=== PATIENT | male | born 1960 | race African-American/Black ===

== ENCOUNTER 2018-02-22 14:23 | Emergency (ER) | payer OTHER ==
[2018-02-22 14:37] VITALS: BMI 34.2
--- NOTE | 2018-02-22 15:02 | PDOC ---
History of Present Illness <Kathryn Valentin - Last Filed: 02/22/18 19:14> - General History Source: Patient Exam Limitations: No Limitations - History of Present Illness Initial Comments: 57 yo M w a hx of recent L3-L5 laminectomy, diabetes, HTN, HCL, childhood asthma , and distant cervical laminectomy presents to the [facility] with bilateral leg pain and right hip pain. He states he had his lumbar laminectomy in December by Dr. Jade Arias. he was originally healing well but then yesterday he experienced an episode of bilateral leg numbness, weakness, and the inability to ambulate. He states it has never hurt this bad. He needed to pull himself on the floor with his hands because his legs were in so much pain and so weak. He did not lose control of his bowel or bladder. He called his orthopedist today and told him about the episode. Dr. Arias said to come to the nearest ER and obtain a cat scan to make sure he doesn't have a blood clot in his spine. Patient denies any chest pain, SOB, difficulty breathing, dysuria, frequency, urgency, diarrhea, constipation, headache, blurry vision, recent fevers, chills , or infections. PCP: Neha Gilbert Orthopedic surgeon: jade arias PSH: Cervical and lumbar laminectomies Allergies: Amoxicillin, Clavulanic acid Social Hx: Smokes 3 cigarettes a day. Denies drinking alcohol or other substance usage. <Eric Kinney - Last Filed: 02/23/18 07:33> - General Chief Complaint: Pain Stated Complaint: RIGHT HIP AND LEFT LEG PAIN Time Seen by Provider: 02/22/18 15:01 Past History <Kathryn Valentin - Last Filed: 02/22/18 19:14> - Past Medical History Asthma: Yes COPD: No HTN: Yes - Suicide/Smoking/Psychosocial Hx Smoking History: Former smoker Have you smoked in the past 12 months: No If you are a former smoker, when did you quit?: 4 YEARS AGO Information on smoking cessation initiated: No Hx Alcohol Use: No Drug/Substance Use Hx: No <Eric Kinney - Last Filed: 02/23/18 07:33> - Past Medical History Allergies/Adverse Reactions: Allergies Allergy/AdvReac Type Severity Reaction Status Date / Time amoxicillin [From Augmentin] AdvReac Severe Difficulty Verified 02/22/18 14:27 Breathing clavulanic acid AdvReac Severe Difficulty Verified 02/22/18 14:27 [From Augmentin] Breathing Home Medications: Ambulatory Orders Amitriptyline HCl 0 mg PO DAILY 02/22/18 Lidocaine 5% Patch [Lidoderm Patch -] 1 patch TP DAILY #30 patch 02/22/18 Lisinopril 0 mg PO DAILY 02/22/18 Oxycodone HCl [Oxycodone HCl ER] 20 mg PO PRN PRN 02/22/18 Oxycodone HCl/Acetaminophen [Percocet 10-325 mg Tablet] 1 each PO Q4HWA Review of Systems - Review of Systems Able to Perform ROS?: Yes Comments:: CONSTITUTIONAL: Present: Chills Absent: fever, no fatigue EYES: Absent: visual changes ENT: Absent: ear pain, no sore throat CARDIOVASCULAR: Absent: chest pain, no palpitations RESPIRATORY: Absent: cough, no SOB GI: Absent: abdominal pain, no nausea, no vomiting, no constipation, no diarrhea GENITOURINARY: Absent: dysuria, no frequency, no hematuria MUSKULOSKELETAL: Present: Back pain, arthralgia Absent: no myalgia SKIN: Absent: rash NEURO: Absent: headache <Eric Kinney - Last Filed: 02/23/18 07:33> *Physical Exam - Vital Signs Last Vital Signs Temp Pulse Resp BP Pulse Ox 97.8 F 60 18 118/61 96 02/22/18 17:59 02/22/18 17:59 02/22/18 17:59 02/22/18 17:59 02/22/18 17:59 <Kathryn Valentin - Last Filed: 02/22/18 19:14> - Vital Signs Last Vital Signs Temp Pulse Resp BP Pulse Ox 98.8 F 71 18 134/87 97 02/22/18 14:24 02/22/18 14:24 02/22/18 14:24 02/22/18 14:24 02/22/18 14:24 - Physical Exam Comments: GENERAL: Well-appearing, well-nourished. No apparent distress. HEENT: Normocephalic, atraumatic. PERRL, EOM intact. CARDIOVASCULAR: Normal S1, S2. Regular rate and rhythm. PULMONARY: Clear to auscultation bilaterally. ABDOMEN: Soft, non-distended, non-tender. EXTREMITIES: It is painful for the patient to move his legs. He has point tenderness in the Right flank. There is a 10 cm scar which is not erythematous, and appears to be healing well. No TTP in any verterbrae. The scar is not TTP. Normal ROM in upper extremities. No gross deformities. SKIN: Warm, dry. No rash NEUROLOGICAL: No focal neurological deficits. Rectal Exam: positive: normal exam, normal rectal tone. negative: decreased tone, hemorrhoids <Eric Kinney - Last Filed: 02/23/18 07:33> Moderate Sedation - Procedure Monitoring Vital Signs: Procedure Monitoring Vital Signs Temperature 97.8 F 02/22/18 17:59 Pulse Rate 60 02/22/18 17:59 Respiratory Rate 18 02/22/18 17:59 Blood Pressure 118/61 02/22/18 17:59 O2 Sat by Pulse Oximetry (%) 96 02/22/18 17:59 <Kathryn Valentin - Last Filed: 02/22/18 19:14> - Procedure Monitoring Vital Signs: Procedure Monitoring Vital Signs Temperature 98.8 F 02/22/18 14:24 Pulse Rate 71 02/22/18 14:24 Respiratory Rate 18 02/22/18 14:24 Blood Pressure 134/87 02/22/18 14:24 O2 Sat by Pulse Oximetry (%) 97 02/22/18 14:24 <Eric Kinney - Last Filed: 02/23/18 07:33> ED Treatment Course - LABORATORY CBC & Chemistry Diagram: 02/22/18 15:56 02/22/18 15:56 - ADDITIONAL ORDERS Additional order review: Laboratory Results 02/22/18 02/22/18 02/22/18 16:35 15:56 15:56 PT with INR 12.8 INR 1.15 PTT (Actin FS) 25.9 Sodium 133 L Potassium 4.2 Chloride 100 Carbon Dioxide 27 Anion Gap 6 L BUN 20 H Creatinine 1.2 Creat Clearance w eGFR > 60 Random Glucose 118 H Calcium 8.7 Total Bilirubin 0.4 AST 14 ALT 13 Alkaline Phosphatase 85 Total Protein 6.7 Albumin 3.7 Urine Color Yellow Urine Appearance Clear Urine pH 5.5 Ur Specific [place] 1.025 Urine Protein Trace Urine Glucose (UA) Negative Urine Ketones Negative Urine Blood Negative Urine Nitrite Negative Urine Bilirubin Negative Urine Urobilinogen 0.2 Ur Leukocyte Esterase Negative Acetaminophen < 2.0 L 02/22/18 15:56 RBC 4.20 MCV 88.5 MCHC 33.1 RDW 12.1 MPV 7.1 L Neutrophils % 66.0 Lymphocytes % 24.9 Monocytes % 6.8 Eosinophils % 1.9 Basophils % 0.4 - Medications Given in the ED: ED Medications Discontinued Medications Generic Name Dose Route Start Last Admin Trade Name Isidra PRN Reason Stop Dose Admin Hydromorphone HCl 1 mg 02/22/18 17:48 02/22/18 17:52 Dilaudid Injection - IVPUSH 02/22/18 17:49 1 mg ONCE ONE Administration Morphine Sulfate 8 mg 02/22/18 15:25 02/22/18 16:04 Morphine Injection - IVPUSH 02/22/18 15:26 8 mg ONCE ONE Administration Sodium Chloride 1,000 ml 02/22/18 16:43 02/22/18 16:49 Normal Saline - IV 02/22/18 16:44 1,000 ml ONCE ONE Administration <Kathryn Valentin - Last Filed: 02/22/18 19:14> - LABORATORY CBC & Chemistry Diagram: 02/22/18 15:56 02/22/18 15:56 <Eric Kinney - Last Filed: 02/23/18 07:33> Medical Decision Making - Medical Decision Making 02/22/18 19:14 Ct shows no acute findings except for questionable loosening around the cage. Case discussed with Dr. Solitario at length, who feels that if patient's pain is improved, he may be seen and have MRI as an outpatient. Patient reports that his pain is greatly improved and he is now ambulatory in the ED. Will write for lidocaine patch and discharge home with follow up with Dr. Solitario. <Kathryn Valentin - Last Filed: 02/22/18 19:14> - Medical Decision Making 57 yo M w a hx of recent L3-L5 laminectomy, diabetes, HTN, HCL, childhood asthma , and distant cervical laminectomy presents to the [facility] with bilateral leg pain and right hip pain. DDx IBNLT: Spinal hematoma, spinal epidural abscess, vertebrae fx, disc herniation, renal colic. Plan: Labs, urine, spinal CT, analgesia, re-assess. - Spoke with Dr. Arias. Number: [phone] - will call him back after cat scans are read. - MRI would be more helpful. <Eric Kinney - Last Filed: 02/23/18 07:33> *DC/Admit/Observation/Transfer - Discharge Dispostion Decision to Admit order: No <Kathryn Valentin - Last Filed: 02/22/18 19:14> <Eric Kinney - Last Filed: 02/23/18 07:33> Diagnosis at time of Disposition: Low back pain Qualifiers: Chronicity: acute Back pain laterality: midline Sciatica presence: without sciatica Qualified Code(s): M54.5 - Low back pain - Discharge Dispostion Disposition: HOME Condition at time of disposition: Good - Prescriptions Prescriptions: Lidocaine 5% Patch [Lidoderm Patch -] 1 patch TP DAILY #30 patch - Referrals Referrals: Jade Arias MD [Primary Care Provider] - - Patient Instructions Printed Discharge Instructions: DI for Low Back Pain Additional Instructions: You came to the ED for severe back pain. There is no emergent finding on your cat scan, but Dr. Arias thinks you would benefit from an MRI. Please make sure that you call Dr. Arias tomorrow morning to set follow up and to make arrangements for your MRI. Return to the ED immediately for very severe pain, pain with fever, weakness or numbness in your legs, loss of control of your bowels or bladder, other new or worsening symptoms. - Post Discharge Activity Forms/Work/School Notes: Back to Work
--- NOTE | 2018-02-22 15:05 | PDOC ---
Attending Attestation - Resident Resident Name: Eric Kinney - HPI HPI: 02/22/18 16:21 Pt presents to the ED complaining of acutely worsening bilateral hip and leg pain. Patient has persistent leg and hip pain since laminectomy in December. Pain became acutely worse yesterday, and patient reports that he was completely unable to walk or move his legs for 45 minutes. This improved with laying motionless on the floor for 45 minutes, and patient is now ambulatory, although he reports subjective weakness in both legs. Patient has been taking 1600 mg of ibuprofen multiple times per day. - Physicial Exam PE: 02/22/18 17:05 Agree with resident exam. Patient is alert and oriented and is mildly uncomfortable. No point tenderness, stepoff of deformity of spine. Patient has well healed surgical incision in over his lumbar spine. Intact strength and sensation of both lower extremities. 02/24/18 18:23 - Medical Decision Making 02/24/18 18:24 PT presents to the ED complaining of acute exacerbation of his chronic lower back pain. Sent in by his orthopedic surgeon Dr. Silva for CT to evaluate positioning of hard fry and to look for blood clot. CT is negative except for very mild loosening of hard fry. Patient feels improved after pain medication and is now ambulatory. Case discussed with Dr. Silva, who agrees that patient can follow up as outpatient for continued imaging.
[2018-02-22] MEDS ORDERED: morphine CARPU-JECT 4 MG/1 ML DISP.SYRIN IVPUSH ONE (15:25)
[2018-02-22] MEDS ORDERED: morphine SULFATE 4 MG/ML VIAL ONE (15:59)
[2018-02-22 16:05] LABS: BASO % 0.4 % (0-2.0); EOS % 1.9 % (0-4.5); HEMATOCRIT 37.2 % (35.4-49); HEMOGLOBIN 12.3 GM/dl (11.7-16.9); LYMPH % 24.9 % (8-40); MCH 29.4 pg (25.7-33.7); MCHC 33.1 g/dl (32.0-35.9); MEAN CELL VOLUME 88.5 fl (80-96); MEAN PLT VOLUME 7.1 fl (7.5-11.1); MONO % 6.8 % (3.8-10.2); PLATELET COUNT 469 K/MM3 (134-434); RDW 12.1 % (11.9-15.9); WHITE BLOOD COUNT 10.3 K/mm3 (4.0-10.8)
[2018-02-22 16:25] LABS: ACTIVATED PTT 25.9 SECONDS (25.2-36.5)
[2018-02-22 16:26] LABS: ALBUMIN 3.7 g/dl (3.5-5.0); ALK PHOS 85 U/L (32-92); ANION GAP 6 MMOL/L (8-16); BILIRUBIN,TOTAL 0.4 mg/dl (0.2-1.0); BLOOD UREA NITROGEN 20 mg/dl (7-18); CALCIUM 8.7 mg/dl (8.4-10.2); CHLORIDE 100 mmol/L (98-107); CO2 27 mmol/L (22-28); CREATININE 1.2 mg/dl (0.6-1.3); GLUCOSE,RANDOM 118 mg/dl (74-106); POTASSIUM 4.2 mmol/L (3.5-5.1); SGOT/AST 14 U/L (10-42); SGPT/ALT 13 U/L (10-40); SODIUM 133 mmol/L (136-145); TOT PROT 6.7 g/dl (6.4-8.3)
[2018-02-22 16:29] LABS: INR 1.15 (0.82-1.09); PROTHROMBIN TIME (PATIENT) 12.8 SEC (10.2-13.0)
[2018-02-22] MEDS ORDERED: SODIUM CHLORIDE 0.9% 500 ML INFUS.BAG IV ONE (16:43)
[2018-02-22 16:54] LABS: PH,URINE 5.5 (4.5-8); URINE APPEARANCE Clear; URINE BILIRUBIN Negative (NEGATIVE); URINE COLOR Yellow; URINE GLUCOSE (UA) Negative (NEGATIVE); URINE KETONE Negative (NEGATIVE); URINE LEUK ESTERASE Negative (NEGATIVE); URINE NITRITE Negative (NEGATIVE); URINE PROTEIN Trace (NEGATIVE); URINE UROBILINOGEN 0.2 (0.2-1.0)
[2018-02-22] MEDS ORDERED: HYDROmorphone HCL CARPU-JECT 1 MG/1 ML DISP.SYRIN IVPUSH ONE (17:48)
[2018-02-22] MEDS ORDERED: HYDROmorphone HCL CARPU-JECT 1 MG/1 ML DISP.SYRIN ONE (17:51)
[2018-02-22 18:00] VITALS: BP 118/61; PULSE 60; TEMP 97.8
== END 2018-02-22 19:27 | disposition home or self-care (01) ==
LOC: FER 14:23
PROC: 3E033NZ Introduction of Analgesics, Hypnotics, Sedatives into Peripheral Vein, Percutaneous Approach (ICD-10-PCS; principal; 2018-02-22)
PROC: 3E0337Z Introduction of Electrolytic and Water Balance Substance into Peripheral Vein, Percutaneous Approach (ICD-10-PCS; 2018-02-22)
DX: M54.5 Low back pain (principal); Z87.891 Personal history of nicotine dependence; I10 Essential (primary) hypertension; J45.909 Unspecified asthma, uncomplicated; E11.9 Type 2 diabetes mellitus without complications
CPT/HCPCS: 36415; 72129-TC; 72132-TC; 80053; 80307; 81003; 85025; 85610; 85730; 99283-25

== ENCOUNTER 2018-02-27 08:39 | Day surgery (SDC) | payer OTHER | END 2018-02-27 10:30 | disposition home or self-care (01) | LOC: JRADIR 08:39 ==

== ENCOUNTER 2018-03-02 08:46 | Day surgery (SDC) | payer OTHER ==
[2018-03-01 17:56] VITALS: BMI 34.5
[2018-03-02 14:20] LABS: BASO % 0.4 % (0-2.0); EOS % 1.7 % (0-4.5); HEMATOCRIT 32.7 % (35.4-49); HEMOGLOBIN 11.6 GM/dL (11.7-16.9); LYMPH % 25.8 % (8-40); MCH 30.6 pg (25.7-33.7); MCHC 35.4 g/dl (32.0-35.9); MEAN CELL VOLUME 86.5 fl (80-96); MEAN PLT VOLUME 6.9 fl (7.5-11.1); MONO % 9.7 % (3.8-10.2); NEUT % 62.4 % (42.8-82.8); PLATELET COUNT 379 K/MM3 (134-434); RBC 3.78 M/mm3 (4.00-5.60); RDW 12.7 % (11.9-15.9); WHITE BLOOD COUNT 8.4 K/mm3 (4.0-10.0)
[2018-03-02 15:04] LABS: ERYTHROCYTE SEDIMENTATION RATE 44 mm/hr (0-20)
[2018-03-02 18:24] VITALS: BP 123/72; PULSE 76; TEMP 97.8
--- NOTE | 2018-03-05 17:02 | PATH ---
Surgical Pathology Report Patient Name: LEÓN SMITH Med. Rec. #: [id number] /Age/Gender: 1960 (Age: 57) / M Account: [id number] Location: RADIOLOGY INTER Taken: 03/02/2018 Received: 03/02/2018 Reported: 03/05/2018 Physicians: Gaetano Silva M.D. Specimen(s) Received BX LUMBAR BONE Clinical History 57-year-old male with history of degenerative disease status post laminectomy and surgical fixation with increased T2 signal at T4-T5 and lytic-like process in ventral body suspicious for discitis osteomyelitis Final Diagnosis LUMBAR BONE, T5, VERTEBRAL BODY, BIOPSY: BONE WITH REACTIVE CHANGES AND MARKED CRUSH ARTIFACT. NO DEFINITIVE ACUTE OSTEOMYELITIS IDENTIFIED. Comment: Multiple levels have been examined. Electronically Signed Shelby Ortiz M.D. Gross Description Received in formalin labeled "lumbar bone," are 4 ascencio-yellow, cylindrical bone fragments ranging from 0.2-0.5 cm in length and averaging 0.1 cm in diameter. The specimens are submitted in toto in one cassette, following decalcification. /03/02/201803/02/2018
== END 2018-03-02 14:30 | disposition home or self-care (01) ==
LOC: JRADIR 08:46
PROVIDERS: ATTEND Orthopaedic Surgery Orthopaedic Surgery of the Spine
PROC: 0PB43ZX Excision of Thoracic Vertebra, Percutaneous Approach, Diagnostic (ICD-10-PCS; principal; 2018-03-02)
PROC: 0R9 Upper Joints, Drainage (ICD-10-PCS; 2018-03-02)
DX: M47.894 Other spondylosis, thoracic region (principal); M96.1 Postlaminectomy syndrome, not elsewhere classified
CPT/HCPCS: 10030; 20225; 36415; 85025; 85651; 86140; 87070; 87075; 87205; 87899; 88305-TC

== ENCOUNTER 2018-03-16 13:31 | Inpatient (IN) | payer OTHER ==
[2018-03-16] MEDS ORDERED: CEFTRIAXONE 2 GM-D5W BAG 2 GM/50 ML BAG IVPB SCH (14:45)
[2018-03-16 14:46] VITALS: BMI 34.2
[2018-03-16] MEDS ORDERED: ALBUTEROL SO4 8 GM HFA INHALER IH PRN (15:14)
[2018-03-16] MEDS ORDERED: ACETAMINOPHEN 500 MG TABLET (FP) PO PRN (15:14)
[2018-03-16 15:28] LABS: BASO % 0.2 % (0-2.0); EOS % 1.9 % (0-4.5); HEMATOCRIT 32.2 % (35.4-49); HEMOGLOBIN 10.8 GM/dl (11.7-16.9); MCH 29.4 pg (25.7-33.7); MCHC 33.6 g/dl (32.0-35.9); MEAN CELL VOLUME 87.5 fl (80-96); MEAN PLT VOLUME 7.1 fl (7.5-11.1); MONO % 8.3 % (3.8-10.2); NEUT % 73.6 % (42.8-82.8); PLATELET COUNT 456 K/MM3 (134-434); RBC 3.68 M/mm3 (4.00-5.60); RDW 12.3 % (11.9-15.9)
[2018-03-16 15:36] LABS: ANION GAP 9 MMOL/L (8-16); BLOOD UREA NITROGEN 26 mg/dl (7-18); CALCIUM 8.9 mg/dl (8.5-10); CHLORIDE 99 mmol/L (98-107); CO2 28 mmol/L (21-32); CREATININE 1.3 mg/dl (0.55-1.3); GLUCOSE,RANDOM 136 mg/dl (74-106); POTASSIUM 5.5 mmol/L (3.5-5.1); SODIUM 136 mmol/L (136-145)
--- NOTE | 2018-03-16 15:40 | HP ---
Admitting History and Physical - Admission Chief Complaint: Low back pain s/p laminectomy and fusion of L4-L5 History of Present Illness: This is a 58 year-old male s/p lumbar laminectomy, interbody fusion and posterior spinal fusion at L4-5 performed 01/02/18. Initial post op course was complicated by wound drainage after sutures removed. Treated with one week of Bactrim without issue. He began to develop increasing low back pain first around 01/26/18. He was neurologically intact and XR showed no issues. Back pain gradually worsened and he had severe episode on 02/21/18 (10/10 in severity) and was seen in ER 02/22/18. CT showed bone loss around cage, WBC 10.3, afebrile. Monday02/23/18 had outpatient MRI that was read as possible disc space infection and seroma - ESR/CRP elevated at 52 and 3.2, respectively. The patient underwent CT-guided biopsies of the seroma as well as the bone and disc space on 03/02/18 where gram stain, fungal cultures and pathology sample were negative for infection. WBC and ESR had dropped to 8.4 and 44 respectively, although CRP increased to 8.3. As the patient was afebrile and pain was controlled at this point, he and Dr. Silva decided to follow-up with patient in the clinical setting the following week. However, laboratory work done on 03/14/18 showed the patient' s white count to be 11.4, ESR of 92 and CRP of 9.9. Given his persistent pain, the findings on the imaging studies, as well as the trending laboratory values, the patient has been admitted for treatment for postoperative discitis. Currently with LBP 09/29. History Source: Patient - Past Medical History Cardiovascular: Yes: HTN Endocrine: Yes: Diabetes Mellitus - Past Surgical History Past Surgical History: Yes: Laminectomy (and fusion of L4-L5 on 01/02/18) - Smoking History Smoking history: Current some day smoker Have you smoked in the past 12 months: Yes Aproximately how many cigarettes per day: 1 If you are a former smoker, when did you quit?: 4 YEARS AGO - Alcohol/Substance Use Hx Alcohol Use: No Home Medications - Allergies Allergies/Adverse Reactions: Allergies Allergy/AdvReac Type Severity Reaction Status Date / Time amoxicillin [From Augmentin] AdvReac Severe Difficulty Verified 03/02/18 09:28 Breathing clavulanic acid AdvReac Severe Difficulty Verified 03/02/18 09:28 [From Augmentin] Breathing - Home Medications Home Medications: Ambulatory Orders Amitriptyline HCl 50 mg PO HS 02/22/18 Lisinopril 10 mg PO DAILY 02/22/18 Albuterol Sulfate Inhaler - [Ventolin Hfa Inhaler -] 2 inh PO Q8H PRN 02/27/18 Aspirin [ASA -] 81 mg PO DAILY 02/27/18 Diclofenac Sodium 1 tablet PO BID 02/27/18 Fluticasone/Salmeterol [Advair 250-50 Diskus] 1 each IH BID 02/27/18 Ibuprofen 800 mg PO TID PRN 02/27/18 Naproxen [Naprosyn -] 500 mg PO BID 02/27/18 Omeprazole 40 mg PO DAILY 02/27/18 Oxycodone HCl 20 mg PO PRN PRN 02/27/18 metFORMIN XR [Glucophage *Xr* -] 750 mg PO DAILY 02/27/18 Acetaminophen [Tylenol .Extra-Strength -] 1,000 mg PO PRN PRN 03/02/18 Oxycodone HCl/Acetaminophen [Percocet 10-325 mg Tablet] 1 tab PO PRN PRN Review of Systems - Review of Systems Musculoskeletal: reports: Back Pain Physical Examination Vital Signs: Vital Signs Temperature 98.7 F 03/16/18 14:15 Pulse Rate 83 03/16/18 14:15 Respiratory Rate 18 03/16/18 14:15 Blood Pressure 130/64 03/16/18 14:15 O2 Sat by Pulse Oximetry (%) Constitutional: Yes: Well Nourished Cardiovascular: Yes: Regular Rate and Rhythm Respiratory: Yes: Regular, CTA Bilaterally Gastrointestinal: Yes: Normal Bowel Sounds, Soft Musculoskeletal: Yes: Back Pain Wound/Incision: Yes: Clean/Dry, Well Approximated Neurological: Yes: Alert, Oriented ...Motor Strength: WNL Labs: CBC, BMP 03/16/18 15:00 Assessment/Plan 58 year-old male s/p lumbar laminectomy, interbody fusion and posterior spinal fusion at L4-5 performed 01/02/18. Worsening severe back pain since 02/21/18 (10 in severity). He was seen in ER on 02/22/[address] showed bone loss around cage. Outpatient MRI on 02/23/18 read as possible disc space infection and seroma - ESR/CRP elevated at 52 and 3.2, respectively. CT-guided biopsies on 03/02/18 of the seroma and the bone and disc space sent for gram stain, fungal cultures and pathology sample were negative for infection. However, laboratory work on showed WBC of 11.4, ESR of 92 and CRP of 9.9. Given his persistent pain, the findings on the imaging studies, as well as the trending laboratory values, the patient has been admitted for treatment for postoperative discitis. I discussed the case with Dr. Fuchs of infectious diseases.
[2018-03-16] MEDS ORDERED: CEFTRIAXONE 2 GM in DEXTROSE 5%-WATER 100 ML IVPB ONE (18:00)
[2018-03-16] MEDS ORDERED: DEXTROSE 5%-WATER 100 ML IVPB ONE (18:03)
[2018-03-16] MEDS: AMITRIPTYLINE HCL 25 MG TABLET (FP) PO SCH (21:23)
[2018-03-17 08:44] LABS: ALBUMIN 3.1 g/dl (3.4-5.0); ALK PHOS 64 U/L (45-117); ANION GAP 9 MMOL/L (8-16); BILIRUBIN,TOTAL 0.3 mg/dl (0.2-1); BLOOD UREA NITROGEN 19 mg/dl (7-18); CALCIUM 8.9 mg/dl (8.5-10); CHLORIDE 99 mmol/L (98-107); CO2 29 mmol/L (21-32); CREATININE 1.1 mg/dl (0.55-1.3); GLUCOSE,RANDOM 118 mg/dl (74-106); POTASSIUM 5.4 mmol/L (3.5-5.1); SGOT/AST 14 U/L (15-37); SGPT/ALT 11 U/L (13-61); SODIUM 137 mmol/L (136-145)
[2018-03-17 08:52] LABS: HEMATOCRIT 30.6 % (35.4-49); HEMOGLOBIN 10.1 GM/dl (11.7-16.9); MCH 28.8 pg (25.7-33.7); MEAN CELL VOLUME 87.4 fl (80-96); MEAN PLT VOLUME 7.2 fl (7.5-11.1); PLATELET COUNT 422 K/MM3 (134-434); RBC 3.51 M/mm3 (4.00-5.60); WHITE BLOOD COUNT 8.1 K/mm3 (4.0-10.8)
[2018-03-17] MEDS ORDERED: DEXTROSE 5%-WATER 100 ML IVPB ONE (08:59)
[2018-03-17] MEDS: CEFTRIAXONE 2 GM in DEXTROSE 5%-WATER 100 ML IVPB SCH (09:05)
--- NOTE | 2018-03-17 09:39 | CONSULT ---
Consultation: REQUESTING PROVIDER: Dr. Silva CONSULT REQUEST: We have been asked to medically evaluate and follow this patient during his hospitalization for infectious spondylodiscitis. HISTORY OF PRESENT ILLNESS: This is a 58 year-old male with a PMH significant for HTN, HLD, and Type II NIDDM, and s/p lumbar laminectomy and fusion. The following relevant history is taken from the EMR: Patient is s/p lumbar laminectomy, interbody fusion and posterior spinal fusion at L4-5 performed 01/02/18. Initial post op course was complicated by wound drainage after suture removal. Treated with one week of Bactrim. He began to develop increasing low back pain around 01/26/18. He was neurologically intact and XR showed no issues. Back pain gradually worsened and he had severe episode on 02/21/18 (11/29 in severity) and was seen in ER 02/22/18. CT showed bone loss around cage, WBC 10.3, afebrile. Monday02/23/18 had outpatient MRI that was read as possible disc space infection and seroma - ESR/CRP elevated at 52 and 3.2, respectively. The patient underwent CT-guided biopsies of the seroma as well as the bone and disc space on 03/02/18 where gram stain, fungal cultures and pathology sample were negative for infection. WBC and ESR had dropped to 8.4 and 44 respectively, although CRP increased to 8.3. As the patient was afebrile and pain was controlled at this point, he and Dr. Silva decided to follow-up with patient in the clinical setting the following week. However, laboratory work done on 03/14/18 showed the patient's white count to be 11.4, ESR of 92 and CRP of 9.9. Given his persistent pain, the findings on the imaging studies, as well as the trending laboratory values, the patient has been admitted for treatment for postoperative discitis. Currently with LBP 09/29. REVIEW OF SYSTEMS: CONSTITUTIONAL: Absent: fever, chills, diaphoresis, generalized weakness, malaise, loss of appetite, weight change HEENT: Absent: rhinorrhea, nasal congestion, throat pain, throat swelling, difficulty swallowing, mouth swelling, ear pain, eye pain, visual changes CARDIOVASCULAR: Absent: chest pain, syncope, palpitations, irregular heart rate, lightheadedness , peripheral edema RESPIRATORY: Absent: cough, shortness of breath, dyspnea with exertion, orthopnea, wheezing, stridor, hemoptysis GASTROINTESTINAL: Absent: abdominal pain, abdominal distension, nausea, vomiting, diarrhea, constipation, melena, hematochezia GENITOURINARY: Absent: dysuria, frequency, urgency, hesitancy, hematuria, flank pain, genital pain MUSCULOSKELETAL: +low back pain that extends across right hip and down right leg Absent: myalgia, arthralgia, joint swelling, back pain, neck pain SKIN: Absent: rash, itching, pallor HEMATOLOGIC/IMMUNOLOGIC: Absent: easy bleeding, easy bruising, lymphadenopathy, frequent infections ENDOCRINE: Absent: unexplained weight gain, unexplained weight loss, heat intolerance, cold intolerance NEUROLOGIC: Absent: headache, focal weakness or paresthesias, dizziness, unsteady gait, seizure, mental status changes, bladder or bowel incontinence PSYCHIATRIC: Absent: anxiety, depression, suicidal or homicidal ideation, hallucinations. PHYSICAL EXAMINATION Vital Signs - 24 hr 03/16/18 03/16/18 03/16/18 14:15 18:20 20:00 Temperature 98.7 F 99.6 F Pulse Rate 83 84 Respiratory 18 20 20 Rate Blood Pressure 130/64 146/62 O2 Sat by Pulse 98 98 Oximetry (%) 03/16/18 03/17/18 22:19 06:27 Temperature 99.1 F 98.0 F Pulse Rate 80 62 Respiratory 20 18 Rate Blood Pressure 136/72 119/64 O2 Sat by Pulse 97 97 Oximetry (%) GENERAL: Awake, alert, and fully oriented, in no acute distress. LUNGS: Breath sounds equal, clear to auscultation bilaterally. No wheezes, and no crackles. No accessory muscle use. HEART: Regular rate and rhythm, normal S1 and S2 ABDOMEN: Soft, nontender, not distended, normoactive bowel sounds UPPER EXTREMITIES: 2+ pulses, warm, well-perfused. No cyanosis. No clubbing. Cap refill <2 seconds. No peripheral edema. LOWER EXTREMITIES: 2+ pulses, warm, well-perfused. No calf tenderness. No peripheral edema. BACK: midline surgical scar well-healed NEUROLOGICAL: Cranial nerves II-XII intact. Normal speech. Laboratory Results - last 24 hr 03/16/18 03/16/18 03/16/18 15:00 15:00 15:00 WBC 9.0 RBC 3.68 L Hgb 10.8 L Hct 32.2 L MCV 87.5 MCH 29.4 MCHC 33.6 RDW 12.3 Plt Count 456 H MPV 7.1 L Absolute Neuts (auto) 6.7 Neutrophils % 73.6 Lymphocytes % 16.0 D Monocytes % 8.3 Eosinophils % 1.9 Basophils % 0.2 ESR 96 H Sodium 136 Potassium 5.5 H Chloride 99 Carbon Dioxide 28 Anion Gap 9 BUN 26 H Creatinine 1.3 Creat Clearance w eGFR 56.31 Random Glucose 136 H Calcium 8.9 Total Bilirubin AST ALT Alkaline Phosphatase C-Reactive Protein Total Protein Albumin 03/16/18 03/17/18 03/17/18 15:00 07:45 07:45 WBC 8.1 RBC 3.51 L Hgb 10.1 L Hct 30.6 L MCV 87.4 MCH 28.8 MCHC 33.0 RDW 12.0 Plt Count 422 MPV 7.2 L Absolute Neuts (auto) Neutrophils % Lymphocytes % Monocytes % Eosinophils % Basophils % ESR Sodium 137 Potassium 5.4 H Chloride 99 Carbon Dioxide 29 Anion Gap 9 BUN 19 H Creatinine 1.1 Creat Clearance w eGFR > 60 Random Glucose 118 H Calcium 8.9 Total Bilirubin 0.3 AST 14 L ALT 11 L Alkaline Phosphatase 64 D C-Reactive Protein 9.4 H Total Protein 6.0 L Albumin 3.1 L Active Medications Generic Name Dose Route Start Last Admin Trade Name Freq PRN Reason Stop Dose Admin Acetaminophen 1,000 mg 03/16/18 15:14 Tylenol - PO PRN PRN BACK PAIN Albuterol Sulfate 2 puff 03/16/18 15:14 Ventolin Hfa Inhaler - IH Q8H PRN WHEEZING Amitriptyline HCl 50 mg 03/16/18 22:00 03/16/18 21:23 Elavil - PO 50 mg HS GISSEL Administration Aspirin 81 mg 03/17/18 10:00 03/17/18 09:05 Asa - PO 81 mg DAILY GISSEL Administration Ceftriaxone Sodium 2 gm/ 100 mls @ 200 mls/hr 03/16/18 14:45 03/17/18 09:05 Dextrose IVPB 200 mls/hr DAILY GISSEL Administration Protocol Oxycodone/Acetaminophen 2 combo 03/16/18 15:13 03/17/18 08:01 Percocet 5/325 - PO 2 combo Q6H PRN Administration PAIN LEVEL 6-10 ASSESSMENT/PLAN: This is a 58 year-old male with a PMH significant for HTN, HLD, and Type II NIDDM, and s/p lumbar laminectomy and fusion. Infectious spondylodiscitis --03/16 MRI lumbar spine: increased marrow edema within L4-L5 vertebral bodies ; non-specific as MRI findings may lag clinical improvement; remainder of study is suggestive of infectious spondylodiscitis infectious spondylodiscitis --bone and aspirate cultures from 03/02/18 negative --blood cultures from 03/16 pending --afebrile, no leukocytosis --ID following: continue ceftriaxone (day #2) --will need PICC line for prolonged IV antibiotic therapy --pain management per surgery; presently on Percocet 2 pills q6h; gave IV motrin 800 x 1 dose today for severe pain; started on amitriptyline several days ago to replace gabapentin; monitor renal function closely Hypertension --BP stable --continue Lisinopril Hyperlipidemia --not on statin therapy Chronic "shortness of breath" --per patient never diagnosed with asthma or COPD, 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 Thank you for this consultative opportunity. Visit type - Emergency Visit Emergency Visit: Yes ED Registration Date: 03/16/18 Care time: The patient presented to the Emergency Department on the above date and was hospitalized for further evaluation of their emergent condition. - New Patient This patient is new to me today: Yes Date on this admission: 03/17/18 - Critical Care Critical Care patient: No
[2018-03-17] MEDS ORDERED: ACETAMINOPHEN 325 MG TABLET (FP) PO PRN (09:54)
[2018-03-17] MEDS ORDERED: ASPIRIN 81 MG CHEWABLE TABLETS PO SCH (10:00)
[2018-03-17] MEDS: LISINOPRIL 10 MG TABLET (FP) PO SCH (10:56)
[2018-03-17] MEDS: INSULIN (NOVOLOG) ASPART 100 UNITS/ML 10ML VIAL SQ SCH ×3 (10:59→21:02)
--- NOTE | 2018-03-17 11:07 | CON.ID ---
Consult Consult Specialty:: infectious diseases Referred by:: Ricardo Roberts Reason for Consultation:: r/o infection of the back - History of Present Illness Chief Complaint: back pain History of Present Illness: 58 year-old male s/p lumbar laminectomy, interbody fusion and posterior spinal fusion at L4-5 performed 01/02/18. Initial post op course was complicated by wound drainage after sutures removed. Treated with one week of Bactrim without issue. He began to develop increasing low back pain first around 01/26/18. He was neurologically intact and XR showed no issues. Back pain gradually worsened and he had severe episode on 02/21/18 (10/10 in severity) and was seen in ER . CT showed bone loss around cage, WBC 10.3, afebrile. Monday02/23/18 had outpatient MRI that was read as possible disc space infection and seroma - ESR/ CRP elevated at 52 and 3.2, respectively. The patient underwent CT-guided biopsies of the seroma as well as the bone and disc space on 03/02/18 where gram stain, fungal cultures and pathology sample were negative for infection. WBC and ESR had dropped to 8.4 and 44 respectively, although CRP increased to 8.3. As the patient was afebrile and pain was controlled at this point, he and Dr. Silva decided to follow-up with patient in the clinical setting the following week. However, laboratory work done on 03/14/18 showed the patient's white count to be 11.4, ESR of 92 and CRP of 9.9. Given his persistent pain, the findings on the imaging studies, as well as the trending laboratory values, the patient has been admitted for treatment for postoperative discitis. . - History Source History Provided By: Patient Limitations to Obtaining History: No Limitations - Past Medical History Cardio/Vascular: Yes: HTN Endocrine: Yes: Diabetes Mellitus - Past Surgical History Past Surgical History: Yes: Laminectomy (and fusion of L4-L5 on 01/02/18) - Alcohol/Substance Use Hx Alcohol Use: No - Smoking History Smoking history: Current some day smoker Have you smoked in the past 12 months: Yes Aproximately how many cigarettes per day: 1 If you are a former smoker, when did you quit?: 4 YEARS AGO Home Medications - Allergies Allergies/Adverse Reactions: Allergies Allergy/AdvReac Type Severity Reaction Status Date / Time amoxicillin [From Augmentin] AdvReac Severe Difficulty Verified 03/02/18 09:28 Breathing clavulanic acid AdvReac Severe Difficulty Verified 03/02/18 09:28 [From Augmentin] Breathing - Home Medications Home Medications: Ambulatory Orders Amitriptyline HCl 50 mg PO HS 02/22/18 Lisinopril 10 mg PO DAILY 02/22/18 Albuterol Sulfate Inhaler - [Ventolin Hfa Inhaler -] 2 inh PO Q8H PRN 02/27/18 Aspirin [ASA -] 81 mg PO DAILY 02/27/18 Diclofenac Sodium 1 tablet PO BID 02/27/18 Fluticasone/Salmeterol [Advair 250-50 Diskus] 1 each IH BID 02/27/18 Ibuprofen 800 mg PO TID PRN 02/27/18 Naproxen [Naprosyn -] 500 mg PO BID PRN 02/27/18 Omeprazole 40 mg PO DAILY 02/27/18 Oxycodone HCl 20 mg PO PRN PRN 02/27/18 metFORMIN XR [Glucophage *Xr* -] 750 mg PO DAILY 02/27/18 Acetaminophen [Tylenol .Extra-Strength -] 1,000 mg PO PRN PRN 03/02/18 Oxycodone HCl/Acetaminophen [Percocet 10-325 mg Tablet] 1 tab PO PRN PRN Review of Systems - Review of Systems Constitutional: reports: No Symptoms Eyes: reports: No Symptoms HENT: reports: No Symptoms Neck: reports: No Symptoms Cardiovascular: reports: No Symptoms Respiratory: reports: No Symptoms Gastrointestinal: reports: No Symptoms Genitourinary: reports: No Symptoms Musculoskeletal: reports: Back Pain Integumentary: reports: No Symptoms Neurological: reports: Numbness (in the legs) Endocrine: reports: No Symptoms Hematology/Lymphatic: reports: No Symptoms Psychiatric: reports: No Symptoms Physical Exam Vital Signs: Vital Signs Temperature 98.0 F 03/17/18 06:27 Pulse Rate 62 03/17/18 06:27 Respiratory Rate 18 03/17/18 06:27 Blood Pressure 119/64 03/17/18 06:27 O2 Sat by Pulse Oximetry (%) 97 03/17/18 06:27 Constitutional: Yes: Well Nourished, Calm, Mild Distress HENT: Yes: Atraumatic, Normocephalic Neck: Yes: Supple, Trachea Midline Cardiovascular: Yes: Regular Rate and Rhythm Respiratory: Yes: Regular, CTA Bilaterally Gastrointestinal: Yes: Normal Bowel Sounds, Soft Musculoskeletal: Yes: Back Pain Extremities: Yes: WNL Neurological: Yes: Alert, Oriented, Other (tenderness while movng the legs) Psychiatric: Yes: Alert, Oriented Labs: CBC, BMP 03/17/18 07:45 03/17/18 07:45 Assessment/Plan this patient with post op seroma development who underwent tapping and who developed and continued to ahve severe back pain now coming because the pain has increased a lot patient crp has increased i have a strong suspicion of discitis vs infection at the site and also if there is further fluid accumalation which could have got infected will send blood cx will send all other blood test repeat mri to see the status ordered crp esr close watch once the blood is collected to start ceftriaxone for now rest continue current mgmt
--- NOTE | 2018-03-17 11:22 | PN ---
Progress Note, Physician History of Present Illness: patient still with lot of pain post op seroma and has a cage mri result noted - Current Medication List Current Medications: Active Medications Acetaminophen (Tylenol -) 650 mg PO Q6H PRN PRN Reason: PAIN LEVEL 1-5 Albuterol Sulfate (Ventolin Hfa Inhaler -) 2 puff IH Q8H PRN PRN Reason: WHEEZING Amitriptyline HCl (Elavil -) 50 mg PO HS [facility] Last Admin: 03/16/18 21:23 Dose: 50 mg Aspirin (Asa -) 81 mg PO DAILY [facility] Last Admin: 03/17/18 09:05 Dose: 81 mg Ceftriaxone Sodium 2 gm/ (Dextrose) 100 mls @ 200 mls/hr IVPB DAILY [facility]; Protocol Last Admin: 03/17/18 09:05 Dose: 200 mls/hr Insulin Aspart (Novolog Vial) 0 units SQ ACHS [facility]; Protocol Last Admin: 03/17/18 10:59 Dose: Not Given Lisinopril (Prinivil) 10 mg PO DAILY [facility] Last Admin: 03/17/18 10:56 Dose: 10 mg Non-Formulary Medication (Fluticasone/Salmeterol [Advair 250-50 Diskus]) 1 each IH BID [facility] Last Admin: 03/17/18 10:56 Dose: 1 each Oxycodone/Acetaminophen (Percocet 5/325 -) 2 combo PO Q6H PRN PRN Reason: PAIN LEVEL 6-10 Last Admin: 03/17/18 08:01 Dose: 2 combo - Objective Vital Signs: Vital Signs Temperature 98.0 F 03/17/18 06:27 Pulse Rate 62 03/17/18 06:27 Respiratory Rate 18 03/17/18 06:27 Blood Pressure 119/64 03/17/18 06:27 O2 Sat by Pulse Oximetry (%) 97 03/17/18 06:27 Constitutional: Yes: Calm, Mild Distress Cardiovascular: Yes: Regular Rate and Rhythm Respiratory: Yes: Regular, CTA Bilaterally Gastrointestinal: Yes: Normal Bowel Sounds, Soft Musculoskeletal: Yes: Back Pain Extremities: Yes: WNL Neurological: Yes: Alert, Oriented Psychiatric: Yes: Alert, Oriented Labs: CBC, BMP 03/17/18 07:45 03/17/18 07:45 Assessment/Plan this patient with post op seroma development who underwent tapping and who developed and continued to ahve severe back pain now coming because the pain has increased a lot patient crp has increased i have a strong suspicion of discitis vs infection at the site and also if there is further fluid accumalation which could have got infected post op discitis back pain numbness int he leg plan await for blood cx to be back patient will need at least 6 weeks of abx rest as per the team once we have everything will decide further plan
[2018-03-17] MEDS ORDERED: IBUPROFEN 800 MG/8 ML IJ IVPB ONE (13:20)
[2018-03-17] MEDS: PANTOPRAZOLE 40 MG TABLET (FP) PO SCH (14:19)
--- NOTE | 2018-03-17 17:38 | PN ---
Progress Note (short form) - Note Progress Note: PT seen and examined and Dw DR Silva. MRI reviewed. Pt feeling better today than yesterday. Afebrile, wound without change. Likely dx at this point is discitis and being treated with IV abx. Per DR Silva no indication for surgical intervention at this time. Will cont abx and follow.
[2018-03-17] MEDS: AMITRIPTYLINE HCL 25 MG TABLET (FP) PO SCH (21:20)
[2018-03-18] MEDS: INSULIN (NOVOLOG) ASPART 100 UNITS/ML 10ML VIAL SQ SCH ×4 (06:19→21:28)
[2018-03-18] MEDS ORDERED: DEXTROSE 5%-WATER 100 ML IVPB ONE (09:14)
[2018-03-18] MEDS: PANTOPRAZOLE 40 MG TABLET (FP) PO SCH (09:18)
[2018-03-18] MEDS: LISINOPRIL 10 MG TABLET (FP) PO SCH (09:18)
[2018-03-18] MEDS: CEFTRIAXONE 2 GM in DEXTROSE 5%-WATER 100 ML IVPB SCH (09:22)
--- NOTE | 2018-03-18 09:42 | PN ---
Physical Exam: SUBJECTIVE: Patient seen and examined OBJECTIVE: Vital Signs Period Temp Pulse Resp BP Sys/Aguilar Pulse Ox Last 24 Hr 98.1 F-99.4 F 67-82 16-22 126-148/55-82 94-97 GENERAL: Awake, alert, and fully oriented, in no acute distress. LUNGS: Breath sounds equal, clear to auscultation bilaterally. No wheezes, and no crackles. No accessory muscle use. HEART: Regular rate and rhythm, normal S1 and S2 ABDOMEN: Soft, nontender, not distended, normoactive bowel sounds UPPER EXTREMITIES: 2+ pulses, warm, well-perfused. No cyanosis. No clubbing. Cap refill <2 seconds. No peripheral edema. LOWER EXTREMITIES: 2+ pulses, warm, well-perfused. No calf tenderness. No peripheral edema. BACK: midline surgical scar well-healed NEUROLOGICAL: Cranial nerves II-XII intact. Normal speech. Laboratory Results - last 24 hr 03/17/18 03/17/18 03/18/18 18:24 20:59 05:55 WBC RBC Hgb Hct MCV MCH MCHC RDW Plt Count MPV Absolute Neuts (auto) Neutrophils % Lymphocytes % Monocytes % Eosinophils % Basophils % Sodium Potassium Chloride Carbon Dioxide Anion Gap BUN Creatinine Creat Clearance w eGFR POC Glucometer 267 121 135 Random Glucose Calcium Magnesium Total Bilirubin AST ALT Alkaline Phosphatase Total Protein Albumin 03/18/18 03/18/18 03/18/18 06:00 06:00 11:32 WBC 8.5 RBC 3.78 L Hgb 11.1 L Hct 33.1 L MCV 87.8 MCH 29.3 MCHC 33.4 RDW 11.9 Plt Count 444 H MPV 7.5 Absolute Neuts (auto) 5.4 Neutrophils % 62.2 Lymphocytes % 27.2 D Monocytes % 7.3 Eosinophils % 2.9 Basophils % 0.4 Sodium 140 Potassium 5.6 H Chloride 101 Carbon Dioxide 30 Anion Gap 9 BUN 15 Creatinine 1.1 Creat Clearance w eGFR > 60 POC Glucometer 163 Random Glucose 116 H Calcium 9.0 Magnesium 2.0 Total Bilirubin 0.2 AST 15 ALT 11 L Alkaline Phosphatase 73 Total Protein 6.2 L Albumin 3.2 L Active Medications Generic Name Dose Route Start Last Admin Trade Name Freq PRN Reason Stop Dose Admin Acetaminophen 650 mg 03/17/18 09:54 Tylenol - PO Q6H PRN PAIN LEVEL 1-5 Albuterol Sulfate 2 puff 03/16/18 15:14 Ventolin Hfa Inhaler - IH Q8H PRN WHEEZING Amitriptyline HCl 50 mg 03/16/18 22:00 03/17/18 21:20 Elavil - PO 50 mg HS [facility] Administration Budesonide/Formoterol Fumarate 2 puff 03/18/18 10:00 Symbicort 80/4.5mcg - IH BID [facility] Ceftriaxone Sodium 2 gm/ 100 mls @ 200 mls/hr 03/16/18 14:45 03/18/18 09:22 Dextrose IVPB 200 mls/hr DAILY [facility] Administration Protocol Insulin Aspart 0 units 03/17/18 11:00 03/18/18 06:19 Novolog Vial SQ Not Given ACHS [facility] Protocol Lisinopril 10 mg 03/17/18 10:00 03/18/18 09:18 Prinivil PO 10 mg DAILY [facility] Administration Oxycodone/Acetaminophen 2 combo 03/16/18 15:13 03/18/18 09:18 Percocet 5/325 - PO 2 combo Q6H PRN Administration PAIN LEVEL 6-10 Pantoprazole Sodium 40 mg 03/17/18 13:30 03/18/18 09:18 Protonix - PO 40 mg DAILY [facility] Administration ASSESSMENT/PLAN: This is a 58 year-old male with a PMH significant for HTN, HLD, and Type II NIDDM, and s/p lumbar laminectomy and fusion. Infectious spondylodiscitis --03/16 MRI lumbar spine: increased marrow edema within L4-L5 vertebral bodies ; non-specific as MRI findings may lag clinical improvement; remainder of study is suggestive of infectious spondylodiscitis infectious spondylodiscitis --bone and aspirate cultures from 03/02/18 negative --blood cultures from 03/16 NGTD --afebrile, no leukocytosis --ID following: continue ceftriaxone (day #3) --will need PICC line for prolonged IV antibiotic therapy --pain management per surgery; presently on Percocet 2 pills q6h; IV motrin 800 x 1 dose again today for severe pain; started on amitriptyline several days ago to replace gabapentin; monitor renal function closely Hypertension --BP stable --continue Lisinopril Hyperlipidemia --not on statin therapy Chronic "shortness of breath" --per patient never diagnosed with asthma or COPD, 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 Thank you for this consultative opportunity. Visit type - Emergency Visit Emergency Visit: Yes ED Registration Date: 03/16/18 Care time: The patient presented to the Emergency Department on the above date and was hospitalized for further evaluation of their emergent condition. - New Patient This patient is new to me today: No - Critical Care Critical Care patient: No
[2018-03-18 10:00] LABS: BASO % 0.4 % (0-2.0); EOS % 2.9 % (0-4.5); HEMATOCRIT 33.1 % (35.4-49); HEMOGLOBIN 11.1 GM/dl (11.7-16.9); LYMPH % 27.2 % (8-40); MCH 29.3 pg (25.7-33.7); MCHC 33.4 g/dl (32.0-35.9); MEAN CELL VOLUME 87.8 fl (80-96); MEAN PLT VOLUME 7.5 fl (7.5-11.1); MONO % 7.3 % (3.8-10.2); NEUT % 62.2 % (42.8-82.8); PLATELET COUNT 444 K/MM3 (134-434); RBC 3.78 M/mm3 (4.00-5.60); RDW 11.9 % (11.9-15.9); WHITE BLOOD COUNT 8.5 K/mm3 (4.0-10.8)
[2018-03-18 10:37] LABS: ALBUMIN 3.2 g/dl (3.4-5.0); ALK PHOS 73 U/L (45-117); ANION GAP 9 MMOL/L (8-16); BILIRUBIN,TOTAL 0.2 mg/dl (0.2-1); BLOOD UREA NITROGEN 15 mg/dl (7-18); CHLORIDE 101 mmol/L (98-107); CO2 30 mmol/L (21-32); CREATININE 1.1 mg/dl (0.55-1.3); GLUCOSE,RANDOM 116 mg/dl (74-106); POTASSIUM 5.6 mmol/L (3.5-5.1); SGOT/AST 15 U/L (15-37); SGPT/ALT 11 U/L (13-61); SODIUM 140 mmol/L (136-145); TOT PROT 6.2 g/dl (6.4-8.2)
--- NOTE | 2018-03-18 10:51 | PN ---
Progress Note (short form) - Note Progress Note: In good spirits back pain definitely better having episodic tingling and discomfort right leg wound well healed afebrile WBC 8.5 blood culures NTD MRI reviewed - progression of endplate changes, otherwise stable. IMP: postoperative discitis/osteomyelitis L4-5 -clinically better with antibiotics -given mri, no indication for operative intervention at this time -oob ad riley -pt consult -venodynes for dvt prophylaxis -await final cultures and ID recommendations -follow lab trends
[2018-03-18] MEDS ORDERED: IBUPROFEN 800 MG/8 ML IJ IVPB ONE (13:12)
[2018-03-18] MEDS ORDERED: SODIUM POLYSTYRENE SULFONATE 15 GM/60 ML BOTTLE PO ONE (14:15)
[2018-03-18] MEDS: BUDESONIDE/FORMETEROL FUMARATE 80/4.5 mcg INHALER IH SCH ×2 (19:52→22:00)
[2018-03-18] MEDS: AMITRIPTYLINE HCL 25 MG TABLET (FP) PO SCH (21:19)
[2018-03-18] MEDS ORDERED: PT OWN MED DRAWER 7, Y5N ONE (21:21)
[2018-03-19] MEDS: INSULIN (NOVOLOG) ASPART 100 UNITS/ML 10ML VIAL SQ SCH ×3 (06:59→17:06)
[2018-03-19] MEDS ORDERED: IBUPROFEN 800 MG/8 ML IJ IVPB ONE ×2 (07:45→15:47)
[2018-03-19] MEDS ORDERED: DEXTROSE 5%-WATER 100 ML IVPB ONE (09:11)
[2018-03-19] MEDS: LISINOPRIL 10 MG TABLET (FP) PO SCH (09:14)
[2018-03-19] MEDS: PANTOPRAZOLE 40 MG TABLET (FP) PO SCH (09:14)
[2018-03-19] MEDS: CEFTRIAXONE 2 GM in DEXTROSE 5%-WATER 100 ML IVPB SCH (09:18)
[2018-03-19 10:06] LABS: ANION GAP 9 MMOL/L (8-16); BLOOD UREA NITROGEN 12 mg/dl (7-18); CALCIUM 8.9 mg/dl (8.5-10); CHLORIDE 100 mmol/L (98-107); CO2 29 mmol/L (21-32); GLUCOSE,RANDOM 101 mg/dl (74-106); MAGNESIUM 1.8 mg/dL (1.8-2.4); POTASSIUM 4.9 mmol/L (3.5-5.1); SODIUM 138 mmol/L (136-145)
[2018-03-19] MEDS: BUDESONIDE/FORMETEROL FUMARATE 80/4.5 mcg INHALER IH SCH (10:36)
--- NOTE | 2018-03-19 11:12 | PN ---
Physical Exam: SUBJECTIVE: Patient seen and examined. Back pain is improved. Motrin has helped quite a bit. OBJECTIVE: Vital Signs Period Temp Pulse Resp BP Sys/Aguilar Pulse Ox Last 24 Hr 98.0 F-98.5 F 63-71 16-18 133-149/36-82 93-97 GENERAL: Awake, alert, and fully oriented, in no acute distress. LUNGS: Breath sounds equal, clear to auscultation bilaterally. No wheezes, and no crackles. No accessory muscle use. HEART: Regular rate and rhythm, normal S1 and S2 ABDOMEN: Soft, nontender, not distended, normoactive bowel sounds UPPER EXTREMITIES: 2+ pulses, warm, well-perfused. No cyanosis. No clubbing. Cap refill <2 seconds. No peripheral edema. LOWER EXTREMITIES: 2+ pulses, warm, well-perfused. No calf tenderness. No peripheral edema. BACK: midline surgical scar well-healed NEUROLOGICAL: Cranial nerves II-XII intact. Normal speech. Laboratory Results - last 24 hr 03/18/18 03/18/18 03/18/18 11:32 18:38 21:24 Sodium Potassium Chloride Carbon Dioxide Anion Gap BUN Creatinine Creat Clearance w eGFR POC Glucometer 163 185 101 Random Glucose Calcium Magnesium 03/19/18 03/19/18 06:34 06:35 Sodium 138 Potassium 4.9 Chloride 100 Carbon Dioxide 29 Anion Gap 9 BUN 12 Creatinine 1.0 Creat Clearance w eGFR > 60 POC Glucometer 121 Random Glucose 101 Calcium 8.9 Magnesium 1.8 Active Medications Generic Name Dose Route Start Last Admin Trade Name Freq PRN Reason Stop Dose Admin Acetaminophen 650 mg 03/17/18 09:54 Tylenol - PO Q6H PRN PAIN LEVEL 1-5 Albuterol Sulfate 2 puff 03/16/18 15:14 Ventolin Hfa Inhaler - IH Q8H PRN WHEEZING Amitriptyline HCl 50 mg 03/16/18 22:00 03/18/18 21:19 Elavil - PO 50 mg HS [facility] Administration Budesonide/Formoterol Fumarate 2 puff 03/18/18 10:00 03/19/18 10:36 Symbicort 80/4.5mcg - IH 2 puff BID [facility] Administration Ceftriaxone Sodium 2 gm/ 100 mls @ 200 mls/hr 03/16/18 14:45 03/19/18 09:18 Dextrose IVPB 200 mls/hr DAILY [facility] Administration Protocol Insulin Aspart 0 units 03/17/18 11:00 03/19/18 06:59 Novolog Vial SQ Not Given ACHS [facility] Protocol Lisinopril 10 mg 03/17/18 10:00 03/19/18 09:14 Prinivil PO 10 mg DAILY [facility] Administration Oxycodone/Acetaminophen 2 combo 03/16/18 15:13 03/19/18 09:14 Percocet 5/325 - PO 2 combo Q6H PRN Administration PAIN LEVEL 6-10 Pantoprazole Sodium 40 mg 03/17/18 13:30 03/19/18 09:14 Protonix - PO 40 mg DAILY [facility] Administration ASSESSMENT/PLAN This is a 58 year-old male with a PMH significant for HTN, HLD, and Type II NIDDM, and s/p lumbar laminectomy and fusion. Infectious spondylodiscitis --03/16 MRI lumbar spine: increased marrow edema within L4-L5 vertebral bodies ; non-specific as MRI findings may lag clinical improvement; remainder of study is suggestive of infectious spondylodiscitis --bone and aspirate cultures from 03/02/18 negative --blood cultures from 03/16 NGTD --afebrile, no leukocytosis --ID following: continue ceftriaxone (day #3) --will need PICC line for prolonged IV antibiotic therapy --pain management per surgery; presently on Percocet 2 pills q6h; IV motrin PRN Hypertension --BP stable --continue Lisinopril Hyperlipidemia --not on statin therapy Chronic "shortness of breath" --per patient never diagnosed with asthma or COPD, 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 Thank you for this consultative opportunity. Visit type - Emergency Visit Emergency Visit: Yes ED Registration Date: 03/16/18 Care time: The patient presented to the Emergency Department on the above date and was hospitalized for further evaluation of their emergent condition. - New Patient This patient is new to me today: No - Critical Care Critical Care patient: No
--- NOTE | 2018-03-19 12:02 | PN ---
Progress Note, Physician History of Present Illness: patient stable doing well still with pain specially in the rt side of the thigh - Current Medication List Current Medications: Active Medications Acetaminophen (Tylenol -) 650 mg PO Q6H PRN PRN Reason: PAIN LEVEL 1-5 Albuterol Sulfate (Ventolin Hfa Inhaler -) 2 puff IH Q8H PRN PRN Reason: WHEEZING Amitriptyline HCl (Elavil -) 50 mg PO HS [facility] Last Admin: 03/18/18 21:19 Dose: 50 mg Budesonide/Formoterol Fumarate (Symbicort 80/4.5mcg -) 2 puff IH BID [facility] Last Admin: 03/19/18 10:36 Dose: 2 puff Ceftriaxone Sodium 2 gm/ (Dextrose) 100 mls @ 200 mls/hr IVPB DAILY [facility]; Protocol Last Admin: 03/19/18 09:18 Dose: 200 mls/hr Insulin Aspart (Novolog Vial) 0 units SQ ACHS [facility]; Protocol Last Admin: 03/19/18 06:59 Dose: Not Given Lisinopril (Prinivil) 10 mg PO DAILY [facility] Last Admin: 03/19/18 09:14 Dose: 10 mg Oxycodone/Acetaminophen (Percocet 5/325 -) 2 combo PO Q6H PRN PRN Reason: PAIN LEVEL 6-10 Last Admin: 03/19/18 09:14 Dose: 2 combo Pantoprazole Sodium (Protonix -) 40 mg PO DAILY [facility] Last Admin: 03/19/18 09:14 Dose: 40 mg - Objective Vital Signs: Vital Signs Temperature 98.3 F 03/19/18 06:00 Pulse Rate 68 03/19/18 06:00 Respiratory Rate 18 03/19/18 06:00 Blood Pressure 141/70 03/19/18 06:00 O2 Sat by Pulse Oximetry (%) 93 L 03/19/18 08:22 Constitutional: Yes: No Distress, Calm Respiratory: Yes: Regular, CTA Bilaterally Gastrointestinal: Yes: Normal Bowel Sounds, Soft Musculoskeletal: Yes: Back Pain Extremities: Yes: WNL Neurological: Yes: Alert, Oriented Psychiatric: Yes: Alert, Oriented Labs: CBC, BMP 03/18/18 06:00 03/19/18 06:34 Assessment/Plan post op discitis back pain numbness int he leg plan all cx reports noted patient needs to get iv vanco 1500 mg daily with ceftriaxone 2 gm daily patient will need it for 6 weeks weekly follow up of cbc bmp esr and crp vanco trough before the 4th dose rest as per the team
[2018-03-19] MEDS ORDERED: VANCOMYCIN HCL 1,500 MG in DEXTROSE 5%-WATER - 500 ML IVPB SCH ×3 (12:30→15:30)
--- NOTE | 2018-03-19 14:40 | DS ---
Physical Examination Vital Signs: Vital Signs Temperature 98.3 F 03/19/18 06:00 Pulse Rate 68 03/19/18 06:00 Respiratory Rate 18 03/19/18 06:00 Blood Pressure 141/70 03/19/18 06:00 O2 Sat by Pulse Oximetry (%) 93 L 03/19/18 08:22 Constitutional: Yes: Well Nourished Eyes: Yes: WNL HENT: Yes: WNL Musculoskeletal: Yes: WNL, Back Pain Extremities: Yes: WNL Neurological: Yes: WNL Labs: CBC, BMP 03/18/18 06:00 03/19/18 06:34 Discharge Summary Reason For Visit: LOW BACK PAIN, Discitis/Psteomyelitis - Instructions Diet, Activity, Other Instructions: regular diet. Needs VNS for home IV antibiotics. Disposition: VNS/HOME HEALTH CARE - Home Medications Comprehensive Discharge Medication List: Ambulatory Orders Amitriptyline HCl 50 mg PO HS 02/22/18 Lisinopril 10 mg PO DAILY 02/22/18 Albuterol Sulfate Inhaler - [Ventolin Hfa Inhaler -] 2 inh PO Q8H PRN 02/27/18 Aspirin [ASA -] 81 mg PO DAILY 02/27/18 Diclofenac Sodium 1 tablet PO BID 02/27/18 Fluticasone/Salmeterol [Advair 250-50 Diskus] 1 each IH BID 02/27/18 Ibuprofen 800 mg PO TID PRN 02/27/18 Naproxen [Naprosyn -] 500 mg PO BID PRN 02/27/18 Omeprazole 40 mg PO DAILY 02/27/18 Oxycodone HCl 20 mg PO PRN PRN 02/27/18 metFORMIN XR [Glucophage *Xr* -] 750 mg PO DAILY 02/27/18 Acetaminophen [Tylenol .Extra-Strength -] 1,000 mg PO PRN PRN 03/02/18 Oxycodone HCl/Acetaminophen [Percocet 10-325 mg Tablet] 1 tab PO PRN PRN
[2018-03-19 15:29] VITALS: BP 134/78; PULSE 84; TEMP 98.4
== END 2018-03-19 18:40 | disposition home health service (06) | DRG 347 ==
LOC: FM/S 13:31
PROVIDERS: ADMIT Orthopaedic Surgery Orthopaedic Surgery of the Spine; ATTEND Orthopaedic Surgery Orthopaedic Surgery of the Spine
PROC: 02HV33Z Insertion of Infusion Device into Superior Vena Cava, Percutaneous Approach (ICD-10-PCS; principal; 2018-03-19)
PROC: B518ZZA Fluoroscopy of Superior Vena Cava, Guidance (ICD-10-PCS; 2018-03-19)
DX: M46.46 Discitis, unspecified, lumbar region (principal); M46.56 Other infective spondylopathies, lumbar region; I10 Essential (primary) hypertension; E11.9 Type 2 diabetes mellitus without complications; F17.210 Nicotine dependence, cigarettes, uncomplicated; R06.02 Shortness of breath; E87.5 Hyperkalemia; M46.26 Osteomyelitis of vertebra, lumbar region
CPT/HCPCS: 36415; 36569; 72148-TC; 77001-TC-FY; 80048; 80053; 82962; 83735; 85025; 85027; 85651; 86140; 87040; 97116-GP; 97161-GP; C1751